=== PATIENT | female | born 1940 | race African-American/Black ===

== ENCOUNTER 2019-02-27 19:46 | Emergency (ER) | payer OTHER ==
[~2019-02-27] VITALS: Ht 170.2 cm; Wt 77.1 kg
[2019-02-27] MEDS ORDERED: METOPROLOL ER PO (20:07)
[2019-02-27] MEDS ORDERED: ASA81BEC PO (20:07)
[2019-02-27] MEDS ORDERED: PLAVIX 75 MG TA75 MG PO (20:08)
[2019-02-27] MEDS ORDERED: NITROSTAT0.4 M1 SUBLING (20:09)
[2019-02-27] MEDS ORDERED: FOLIC ACID1 MG PO (20:09)
[2019-02-27] MEDS ORDERED: METHOTREXATE 22.5 M1 PO (20:10)
[2019-02-27] MEDS ORDERED: ISOSORBIDE MONONITRATE PO (20:11)
[2019-02-27] MEDS ORDERED: ATORVASTATIN CA80 MG PO (20:11)
[2019-02-27] MEDS ORDERED: TRAMADOL 50 MG50 MG PO (20:26)
[2019-02-27] MEDS ORDERED: NITROGLYCERIN0.4 MG SUBLING (20:26)
[2019-02-27 20:29] LABS: HEMATOCRIT 36.3 % (37.0-47.0); HEMOGLOBIN 11.8 gm/dL (12.0-15.0); MCH 29.2 pg (26.0-34.0); MCHC 32.6 g/dL (28.0-37.0); MCV 89.5 fL (80.0-100.0); PLATELET COUNT 197 thou/uL (150-400); RBC 4.05 mil/uL (4.20-5.00); RDW 17.8 % (10.5-14.5); WBC 8.2 thou/uL (4.0-11.0)
[2019-02-27 20:40] LABS: ANION GAP 8 mmol/L (7-16); BUN 24 mg/dL (7-18); CALCIUM 9.2 mg/dL (8.5-10.1); CHLORIDE 108 mmol/L (98-107); CO2 26 mmol/L (21-32); CREATININE 1.4 mg/dL (0.6-1.0); GLUCOSE 101 mg/dL (74-106); POTASSIUM 4.1 mmol/L (3.5-5.1); SODIUM 142 mmol/L (136-145)
[2019-02-27 20:43] LABS: APTT 27.1 Seconds (24.5-32.8); PROTIME 10.2 Seconds (9.3-11.4)
[2019-02-27 20:49] LABS: ALBUMIN 3.1 g/dL (3.4-5.0); MAGNESIUM 1.6 mg/dL (1.8-2.4); SGOT 24 U/L (15-37); SGPT 25 U/L (30-65); TOTAL BILIRUBIN 0.2 mg/dL (<0.1-1.0); TOTAL PROTEIN 6.9 g/dL (6.4-8.2); TROPONIN-I <0.06 ng/mL (<0.06)
[2019-02-27 21:11] LABS: ABSOLUTE NEUTROPHILS 6.3 thou/uL (1.4-8.2)
[2019-02-27 21:12] LABS: PLATELET ESTIMATE NORMAL
[2019-02-27 21:31] VITALS: BP 135/69
--- NOTE | 2019-02-28 08:40 | EKG ---
[address] [address] ELECTROCARDIOGRAM REPORT Name: ASHOK ELIZONDO Room #: [facility]#: [id number] Admission: 02/27/19 Attend Phys: Discharge: 02/27/19 Date of : 40 Report #: [id number] THIS REPORT FOR: //name// [facility] ED Test Date: 2019-02-27 Test Time: 19:56:36 Pat Name: ASHOK ELIZONDO Department: Room: Gender: F Hospital Receiving Clerk: GABINO : 1940 Requested By: Jaspreet Caro Order Number: [id number] MD: Stone Snyder Measurements Intervals [place] Rate: 74 P: 68 NE: 161 QRS: 17 QRSD: 90 T: 7 QT: 405 QTc: 450 Interpretive Statements Sinus rhythm Inferior infarct, old No previous ECG available for comparison Electronically Signed On 02-28-2019 8:40:06 [employer] COUNTRY COACH by Stone Snyder [email or web address] <ELECTRONICALLY SIGNED> By: Stone Snyder MD 02/28/19 0840 55 55 Stone Snyder MD /OLVIN
== END 2019-02-27 21:32 | disposition home or self-care (01) ==
LOC: ER 19:46
PROVIDERS: Emergency Medicine
DX: R07.89 Other chest pain (principal); R25.2 Cramp and spasm; M19.90 Unspecified osteoarthritis, unspecified site; K21.9 Gastro-esophageal reflux disease without esophagitis; I25.10 Atherosclerotic heart disease of native coronary artery without angina pectoris; Z79.82 Long term (current) use of aspirin; Z79.899 Other long term (current) drug therapy; Z95.5 Presence of coronary angioplasty implant and graft

== ENCOUNTER 2019-12-01 08:27 | Inpatient (IN) | payer OTHER ==
[2019-12-01] VITALS (7 sets, daily range): BP systolic 121–145; BP diastolic 52–84
[~2019-12-01] VITALS: Ht 170.2 cm; Wt 78.0 kg
[~2019-12-01 08:27] MED LIST: ASA81BEC PO; ATORVASTATIN CA80 MG PO; FOLIC ACID1 MG PO; ISOSORBIDE MONONITRATE PO; METHOTREXATE 22.5 M1 PO; METOPROLOL ER PO; NITROGLYCERIN0.4 MG SUBLING; NITROSTAT0.4 M1 SUBLING; PLAVIX 75 MG TA75 MG PO; TRAMADOL 50 MG50 MG PO
[2019-12-01] MEDS ORDERED: CHLORTHALIDONE25 MG PO (08:47)
[2019-12-01] MEDS ORDERED: ZETIA10 MG PO (08:48)
--- NOTE | 2019-12-01 09:11 | EKG ---
[facility] [place] [place] [place] [address] ELECTROCARDIOGRAM REPORT Name: ASHOK ELIZONDO Room #: [facility]#: [id number] Admission: 12/01/19 Attend Phys: Discharge: Date of : 40 Report #: [id number] THIS REPORT FOR: cc: Sheila Tello K. Steven DO Lundgren, Craig H. MD [facility] THIS REPORT FOR: //name// [facility] ED Test Date: 2019-12-01 Test Time: 08:34:34 Pat Name: ASHOK ELIZONDO Department: Room: Gender: F [employer]: ALPHONSO : 1940 Requested By: Jaspreet Caro Order Number: [id number] MD: Johan Arriaza Measurements Intervals [place] Rate: 99 P: 65 [place]: 149 QRS: -25 QRSD: 95 T: 42 QT: 360 QTc: 462 Interpretive Statements Sinus rhythm Poor R wave progression Inferior infarct, old Compared to ECG 02/27/2019 19:56:36 No significant changes Electronically Signed On 12-01-2019 9:11:19 CDT by Johan Arriaza [email or web address] <ELECTRONICALLY SIGNED> By: Johan Arriaza MD, FACC 12/01/1911 3 Johan Arriaza MD, [facility] /EPI
[2019-12-01 09:20] LABS: ABSOLUTE NEUTROPHILS 7.2 thou/uL (1.4-8.2); BASOPHILS 0.5 % (0.0-2.0); EOSINOPHILS 0.5 % (0.0-3.0); HEMATOCRIT 40.2 % (37.0-47.0); HEMOGLOBIN 13.4 gm/dL (12.0-15.0); LYMPHOCYTES 10.2 % (24.0-44.0); MCH 29.6 pg (26.0-34.0); MCHC 33.3 g/dL (28.0-37.0); MONOCYTES 7.5 % (1.0-8.0); PLATELET COUNT 230 thou/uL (150-400); POLYS 81.3 % (36.0-66.0); RBC 4.52 mil/uL (4.20-5.00); RDW 15.9 % (10.5-14.5); WBC 8.9 thou/uL (4.0-11.0)
[2019-12-01 09:22] LABS: ANION GAP 12 mmol/L (7-16); BUN 16 mg/dL (7-18); CHLORIDE 99 mmol/L (98-107); CO2 28 mmol/L (21-32); CREATININE 0.9 mg/dL (0.6-1.0); GLUCOSE 121 mg/dL (74-106); POTASSIUM 3.2 mmol/L (3.5-5.1); SODIUM 139 mmol/L (136-145)
[2019-12-01 09:32] LABS: ALBUMIN 3.5 g/dL (3.4-5.0); MAGNESIUM 1.9 mg/dL (1.8-2.4); SGOT 50 U/L (15-37); SGPT 59 U/L (30-65); TOTAL BILIRUBIN 0.8 mg/dL (0.2-1.0); TOTAL PROTEIN 7.7 g/dL (6.4-8.2); TROPONIN-I <0.06 ng/mL (<0.06)
[2019-12-01 10:40] LABS: CHOLESTEROL 172 mg/dL (<200); HDL CHOLESTEROL 79 mg/dL (>40); LDL CHOLESTEROL 84 mg/dL (<100); TC:HDL 2.2 Ratio (Not establshd); TRIGLYCERIDE 46 mg/dL (<150); VLDL 9 mg/dL (<40)
--- NOTE | 2019-12-01 14:38 | EXE ---
[facility] [place] [place] [place] [address] STRESS ECHOCARDIOGRAM Name: ASHOK ELIZONDO Room #: 211-P [facility] IN M.R.#: [id number] Admission: 12/01/19 Attend Phys: Denise Crespo Tyler Discharge: Date of : 40 Report #: [id number] THIS REPORT FOR: cc: Sheila Tello K. Steven DO Lundgren, Craig H. MD [facility] ~ THIS REPORT FOR: //name// APPROVED REPORT Study performed: 12/01/2019 12:44:33 Exam: Stress Echocardiogram Indication: Chest pain Patient Location: Echo lab Room #: 211 Status: routine Ht: 5 ft 7 in HR: 82 bpm BP: 128/60 mmHg Rhythm: NSR Medical History Medical History: CAD s/p stent Exercise History: Physically active Procedure The patient underwent an Exercise Stress Test using the Modified Hesham Protocol. Blood pressure, heart rate, and EKG were monitored. An Echocardiogram was performed by laboratory mechanical technician in four stages in quad fashion. At peak stress, four selected images were obtained and placed side by side with resting images for comparison. Stress Test Details Stress Test: Exercise stress testing was performed using a modified Hesham protocol. HR Resting HR: 82 bpm Max Heart Rate (APMHR): 141 bpm Max HR Achieved: 139 bpm Target HR (85% APMHR): 119 bpm % of APMHR: 98 Recovery HR: 88 bpm HR response to stress: Normal HR response to stress [facility] [address] [place] [address] STRESS ECHOCARDIOGRAM Name: CAROASHOK Gregorio Room #: 211-P [facility] IN [facility].#: [id number] Admission: 12/01/19 Attend Phys: Denise Petty Discharge: Date of : 40 Report #: [id number] Resting BP: 128/60 mmHg Max BP: 160/66 mmHg Recovery BP: 132/60 mmHg BP response to stress: Normal blood pressure response to stress. ECG Resting ECG: Sinus Rhythm Stress ECG: Sinus Tachycardia ST Change: Non-ischemic Maximum ST Deviation: 0 mm Arrhythmia: None Recovery ECG: Sinus Rhythm Recovery ST Change: Non-ischemic Recovery ST Deviation: 0 mm Recovery Arrhythmia: None Clinical Reason for Termination: Maximal effort Exercise duration: 11 min 13 sec Highest Stage Achieved: Stage 2: 2.5 mph at 12% grade. Exercise capacity: 7.0 METs Overall Exercise Capacity for Age: Good Angina Score: None Stress ECG Conclusion Clinical: Non-ischemic ECG: Non-ischemic Maguire Treadmill Score is 11.0 which is Low risk. Pre-Stress Echo The resting Echocardiogram showed normal left ventricular contractility with an estimated Ejection Fraction of about 50-55%. The resting echocardiogram demonstrated normal wall motion in all wall segments. Post-Stress Echo The stress Echocardiogram showed normal left ventricular contractility with an estimated Ejection Fraction of about 65-70%. Compared to rest, there were no stress-induced wall motion abnormalities. Conclusion Clinical Response: Non-ischemic Exercise Capacity: Average Stress ECG Response: Non-ischemic [facility] [address] [place] [address] STRESS ECHOCARDIOGRAM Name: ASHOK ELIZONDO Room #: 211-P ADM IN M.R.#: [id number] Admission: 12/01/19 Attend Phys: Denise Petty Discharge: Date of : 40 Report #: [id number] Stress Echo Images: Non-ischemic The left ventricle is normal in size and wall thickness in both the rest and stress images. Normal stress echocardiogram with maximal exercise stress. No prior study available for comparison. Other Information Study Quality: Good <Conclusion> The left ventricle is normal in size and wall thickness in both the rest and stress images. Normal stress echocardiogram with maximal exercise stress. <ELECTRONICALLY SIGNED> By: Johan Arriaza MD, FACC 12/01/19 1438 1438 143 Johan Arriaza MD, FACC /INF
--- NOTE | 2019-12-01 19:13 | NUR ---
PT CARE ASSUMED AT 1130. ASSESSMENTS CHARTED. MEDICATION CHARTED. PT IS VERY STEADY ON HER FEET. PT EXPERIENCES MID STERNAL CP; TOOK NITRO TO LITTLE EFFECT IN ED; TOOK MORPHINE IN CCU TO BETTER EFFECT. PT FEELS BETTER ALMOST IMMEDIATELY UPON SITTING UP.
[2019-12-02 00:45] VITALS: BP 115/60
--- NOTE | 2019-12-02 03:40 | NUR ---
ASSESSMENTS CHARTED, MEDS CHARTED GIVEN. PATIENT UP AT JACQUE IN ROOM. DENIES PAIN. ON ROOM AIR. SO FAR CHEST XRAY IS FINE, HER STRESS ECHO WAS FINE, AND SHE HAS TWO NEGATIVE TROPONINS. HAS A CONSULT FOR CARDIOLOGY, POSSIBLY DISCHARGING TODAY. FALL PRECAUTIONS IN PLACE DURING SHIFT.
[2019-12-02 04:45] VITALS: BP 119/57
[2019-12-02 08:00] VITALS: BP 121/61
[2019-12-02 12:14] VITALS: BP 121/61
--- NOTE | 2019-12-02 13:04 | NUR ---
ASSUMMED PT CARE AT APPROXIMATELY 0700. PT A&O X4. ASSESSMENT CHARTED. PT AMBULATES STEADY AND INDEPENDENT. VITAL SIGNS STABLE. INFORMED DR. CONROY OF HYPOKALEMIA. REPLACEMENT ORDERED AND IMPLEMENTED. PT DISCHARGING HOME C SELF CARE. IV DC. TELE DC. PT RECEIVED DISCHARGE EDUCATION. PT STATED UNDERSTANDING AND DENIED HAVING FURTHER CONCERNS. AMBULATED C PT OFF UNIT. PT AMBULATES STEADY. PT'S FAMILY ARRIVED TO INFORMATION STRATEGIST PT. PT COMFROTABLE. PT DENIES HAVING FURTHER CONCERNS.
== END 2019-12-02 12:57 | disposition home or self-care (01) | DRG 303 ==
LOC: ER 08:27 → EROBS 10:11 → 2N 11:41
PROVIDERS: Emergency Medicine; ADMIT Hospitalist; ATTEND Hospitalist
DX: I25.10 Atherosclerotic heart disease of native coronary artery without angina pectoris (principal); E78.5 Hyperlipidemia, unspecified; I10 Essential (primary) hypertension; K21.9 Gastro-esophageal reflux disease without esophagitis; G89.29 Other chronic pain; I25.2 Old myocardial infarction; Z95.5 Presence of coronary angioplasty implant and graft; Z79.01 Long term (current) use of anticoagulants; Z79.82 Long term (current) use of aspirin; Z79.899 Other long term (current) drug therapy
CPT/HCPCS: 10081

== ENCOUNTER 2020-01-17 11:33 | Inpatient (IN) | payer OTHER ==
[~2020-01-17] VITALS: Ht 170.2 cm; Wt 74.8 kg
[~2020-01-17 11:33] MED LIST changes: +CHLORTHALIDONE25 MG PO; +ZETIA10 MG PO
[2020-01-17 11:46] VITALS: BP 116/74
[2020-01-17 12:37] LABS: HEMATOCRIT 36.4 % (37.0-47.0); MCH 29.3 pg (26.0-34.0); MCHC 32.9 g/dL (28.0-37.0); MCV 89.2 fL (80.0-100.0); RBC 4.08 mil/uL (4.20-5.00); RDW 16.7 % (10.5-14.5)
[2020-01-17 12:44] LABS: ANION GAP 9 mmol/L (7-16); BUN 23 mg/dL (7-18); CALCIUM 9.6 mg/dL (8.5-10.1); CHLORIDE 101 mmol/L (98-107); CO2 29 mmol/L (21-32); CREATININE 1.1 mg/dL (0.6-1.0); GLUCOSE 99 mg/dL (74-106); POTASSIUM 3.2 mmol/L (3.5-5.1); SODIUM 139 mmol/L (136-145)
[2020-01-17 12:51] LABS: APTT 31.8 Seconds (24.5-32.8); INR 1.1; PROTIME 10.8 Seconds (9.3-11.4)
[2020-01-17 12:53] LABS: TROPONIN-I <0.06 ng/mL (<0.06)
[2020-01-17 14:03] VITALS: BP 100/50
[2020-01-17 14:38] VITALS: BP 119/69
--- NOTE | 2020-01-17 16:07 | EKG ---
[facility] [place] [place] [address] ELECTROCARDIOGRAM REPORT Name: ASHOK ELIZONDO Room #: 357-P ADM IN M.R.#: [id number] Admission: 01/17/20 Attend Phys: Shin Hamilton MD Discharge: Date of : 40 Report #: [id number] THIS REPORT FOR: cc: Sheila Tello K. Steven DO Santiago, Patrick MD [facility] ~ THIS REPORT FOR: //name// [facility] ED Test Date: 2020-01-17 Test Time: 12:12:41 Pat Name: ASHOK ELIZONDO Department: Room: 357 P Gender: F Manufacturing Engineering Manager: [facility] : 1940 Requested By: Shin Hamilton Order Number: [id number] MD: Devon Tejeda Measurements Intervals [place] Rate: 120 P: [place]: QRS: 22 QRSD: 93 T: -11 QT: 332 QTc: 470 Interpretive Statements Atrial fibrillation Abnormal R-wave progression, late transition Inferior infarct, old Compared to ECG 12/01/2019 08:34:34 Sinus rhythm no longer present Poor R-wave progression no longer present Myocardial infarct finding still present Electronically Signed On 01-17-2020 16:07:40 CDT by Devon Tejeda [email or web address] <ELECTRONICALLY SIGNED> By: Devon Tejeda MD, FACC 01/17/20 1607 11 11 Devon Tejeda MD, FAC /EPI
[2020-01-17 16:41] VITALS: BP 114/68
--- NOTE | 2020-01-17 18:15 | NUR ---
PATIENT ADMITTED TO UNIT AT THIS TIME. RESPIRATIONS ARE EVEN NON LABORED. SHE STATES SHE FEELS TIRED AND WILL LIKE TO GET SOME REST. UP AD JACQUE. WILL CONT WITH PLAN OF CARE.
[2020-01-17 20:21] VITALS: BP 139/83
[2020-01-18 04:01] VITALS: BP 128/73
--- NOTE | 2020-01-18 04:47 | NUR ---
ASSUMED CARE OF PT AT 1900HRS. PT AOX4 AND LETS NEEDS BE KNOWN. PT IS UP AD JACQUE. PT TESTED POSITIVE FOR COVID ON 01/17/20. PT PLACED IN 2L O2 FOR COMFORT. PT IS AFIB ON TELE. PT REPORTS NOT BEING ABLE TO SLEEP MUCH THIS SHIFT. VSS AND NO S/S OF ACUTE DISTRESS. WILL CONTINUE TO MONITOR.
[2020-01-18 06:15] LABS: ABSOLUTE NEUTROPHILS 8.8 thou/uL (1.4-8.2); BASOPHILS 0.5 % (0.0-2.0); EOSINOPHILS 2.7 % (0.0-3.0); HEMATOCRIT 36.2 % (37.0-47.0); HEMOGLOBIN 11.8 gm/dL (12.0-15.0); LYMPHOCYTES 5.7 % (24.0-44.0); MCH 29.4 pg (26.0-34.0); MCHC 32.6 g/dL (28.0-37.0); MCV 90.1 fL (80.0-100.0); MONOCYTES 11.4 % (1.0-8.0); PLATELET COUNT 316 thou/uL (150-400); POLYS 79.7 % (36.0-66.0); RBC 4.01 mil/uL (4.20-5.00); RDW 17.3 % (10.5-14.5)
[2020-01-18 06:42] LABS: ANION GAP 12 mmol/L (7-16); BUN 18 mg/dL (7-18); CALCIUM 9.1 mg/dL (8.5-10.1); CHLORIDE 103 mmol/L (98-107); CHOLESTEROL 153 mg/dL (<200); CO2 24 mmol/L (21-32); CREATININE 0.9 mg/dL (0.6-1.0); GLUCOSE 93 mg/dL (74-106); HDL CHOLESTEROL 65 mg/dL (>40); LDL CHOLESTEROL 78 mg/dL (<100); MAGNESIUM 2.1 mg/dL (1.8-2.4); SODIUM 139 mmol/L (136-145); TC:HDL 2.4 Ratio (Not establshd); TRIGLYCERIDE 52 mg/dL (<150); VLDL 10 mg/dL (<40)
[2020-01-18 06:43] LABS: SERUM ASSESSMENT Clear
[2020-01-18 07:22] VITALS: BP 108/53
[2020-01-18] MEDS ORDERED: METOPROLOL SUCC50 MG PO (09:22)
[2020-01-18] MEDS ORDERED: XARELTO20 MG PO (09:22)
--- NOTE | 2020-01-18 11:20 | EKG ---
[facility] [place] [place] [address] ELECTROCARDIOGRAM REPORT Name: ASHOK ELIZONDO Room #: 357-P ADM IN M.R.#: [id number] Admission: 01/17/20 Attend Phys: Shin Hamilton MD Discharge: Date of : 40 Report #: [id number] THIS REPORT FOR: cc: Sheila Tello K. Steven DO Santiago, Patrick MD [facility] ~ THIS REPORT FOR: //name// [facility] Test Date: 2020-01-18 Test Time: 08:15:44 Pat Name: ASHOK ELIZONDO Department: Room: 357 P Gender: F On Call: CHARLIE : 1940 Requested By: Johan Arriaza Order Number: [id number] MD: Devon Tejeda Measurements Intervals [place] Rate: 96 P: 41 [place]: 160 QRS: 26 QRSD: 87 T: 59 QT: 346 QTc: 438 Interpretive Statements Sinus rhythm Atrial premature complex Abnormal R-wave progression, late transition Inferior infarct, old Compared to ECG 01/17/2020 12:12:41 Atrial premature complex(es) now present Atrial fibrillation no longer present Myocardial infarct finding still present Electronically Signed On 01-18-2020 11:20:02 CDT by Devon Tejeda [email or web address] <ELECTRONICALLY SIGNED> By: Devon Tejeda MD, FACC 01/18/20 1120 4 4 Devon Tejeda MD, [facility] /EPI
[2020-01-18 11:32] VITALS: BP 111/55
--- NOTE | 2020-01-18 15:24 | NUR ---
PT ASSESSED AT START OF SHIFT. FEELING BETTER. PT STATES CANNOT FEEL HEART WHEN BEATS FAST OR IRREGULAR. IN SR AT PRESENT RATE CONTROLLED. LOW GRADE TEMP THIS AM. DR. BRIONES IN EARLY AND SIGNED OFF. PT TO F/U W/ CARDIO. WILL NEED CONTINUED ANTICOAGULATION.
[2020-01-18 15:29] VITALS: BP 123/76
[2020-01-18 19:07] VITALS: BP 115/60
--- NOTE | 2020-01-18 22:34 | NUR ---
PT SLEEPING IN BED, EASILY AROUSED FOR ASSESSMENT. O2 PER NC 1L. PT INDEP WITH AMBULAITON. PT PROVIDED HS SNACK. POSSIBLE DC IN AM. ID ROUNDED ON PT.
[2020-01-19 03:16] VITALS: BP 109/68
[2020-01-19 07:17] VITALS: BP 135/70
--- NOTE | 2020-01-19 12:36 | EKG ---
[facility] [place] [place] [address] ELECTROCARDIOGRAM REPORT Name: ASHOK ELIZONDO Room #: 357-P ADM IN M.R.#: [id number] Admission: 01/17/20 Attend Phys: Shin Hamilton MD Discharge: Date of : 40 Report #: [id number] THIS REPORT FOR: cc: Sheila Tello K. Steven DO Couchonnal, Luis F. MD ~ THIS REPORT FOR: //name// [facility] Test Date: 2020-01-19 Test Time: 12:18:05 Pat Name: ASHOK ELIZONDO Department: Room: 357 P Gender: F [employer] C[employer]: [place] : 1940 Requested By: Shin Hamilton Order Number: [id number] MD: Stone Snyder Measurements Intervals [place] Rate: 106 P: [place]: QRS: 13 QRSD: 85 T: 11 QT: 326 QTc: 433 Interpretive Statements Atrial fibrillation Abnormal R-wave progression, late transition Consider left ventricular hypertrophy Inferior infarct, old Compared to ECG 01/18/2020 08:15:44 Sinus rhythm no longer present Atrial premature complex(es) no longer present Myocardial infarct finding still present Electronically Signed On 01-19-2020 12:35:56 CDT by Stone Snyder [email or web address] <ELECTRONICALLY SIGNED> By: Stone Snyder MD 01/19/20 1235 17 17 Stone Snyder MD /EPI
[2020-01-19] MEDS ORDERED: METOPROLOL SUCC50 MG PO (14:18)
[2020-01-19 15:09] VITALS: BP 135/70
--- NOTE | 2020-01-19 15:31 | NUR ---
ASSUMED CARE OF PT AT 0700. PT AOX4 UP AD JACQUE IN NO DISTRESS. SINUS RHYTHM UNTIL APPROX 0900 TODAY - AFIB ON TELEMETRY, UP TO 140's WITH ACTIVITY. PHYSICIAN NOTIFIED - EKG ORDERED - AFIB - HR 106. NOTIFIED CARDIOLOGY BY PHONE - TOPROLOL INCREASED TO 100MG DAILY. OK TO DISCHARGE AT THIS TIME, PER CARDIOLOGY. WAITING ON TRANSPORT. WCM.
--- NOTE | 2020-01-19 16:07 | NUR ---
INITIAL ASSESSMENT/DISCHARGE NOTE: SW reviewed chart and spoke with nursing and attending physician. Pt was admitted from home due to afib with RVR. Pt placed in Enhanced Isolation due to COVID-19. Pt tested positive a few weeks ago. Pt is medically stable for discharge home today. SW spoke with pt via phone. Introduced role of SW. Pt reports she lives at home with her dtr. Prior to admission, pt was independent with ADLs. No use of DME. No stairs to navigate. Pt's PCP is Dr. Clayton Tello. Pt states her family is able to provide transportation home this afternoon. No SW needs identified at this time, but is available to assist should needs arise.
== END 2020-01-19 15:50 | disposition home or self-care (01) | DRG 177 ==
LOC: ER 11:33 → 3W 14:15 → EROBS 14:15 → 3W 15:01
PROVIDERS: Emergency Medicine; Nurse Practitioner; ADMIT Hospitalist; ATTEND Hospitalist
DX: U07.1 COVID-19 (principal); J12.9 Viral pneumonia, unspecified; I48.0 Paroxysmal atrial fibrillation; E78.5 Hyperlipidemia, unspecified; M06.9 Rheumatoid arthritis, unspecified; I25.10 Atherosclerotic heart disease of native coronary artery without angina pectoris; E87.6 Hypokalemia; G89.29 Other chronic pain; E83.42 Hypomagnesemia; Z60.2 Problems related to living alone; Z79.01 Long term (current) use of anticoagulants; I25.2 Old myocardial infarction; Z95.5 Presence of coronary angioplasty implant and graft; Z90.710 Acquired absence of both cervix and uterus; Z28.21 Immunization not carried out because of patient refusal; Z79.899 Other long term (current) drug therapy
CPT/HCPCS: 10879

== ENCOUNTER 2020-02-22 10:51 | Inpatient (IN) | payer OTHER ==
[~2020-02-22] VITALS: Ht 170.2 cm; Wt 79.4 kg
[~2020-02-22 10:51] MED LIST changes: +METOPROLOL SUCC50 MG PO; +XARELTO20 MG PO
[2020-02-22 10:53] VITALS: BP 112/64
[2020-02-22 11:39] LABS: HEMATOCRIT 27.3 % (37.0-47.0); MCH 29.9 pg (26.0-34.0); MCHC 32.8 g/dL (28.0-37.0); MCV 91.1 fL (80.0-100.0); PLATELET COUNT 276 thou/uL (150-400); RBC 2.99 mil/uL (4.20-5.00); RDW 18.9 % (10.5-14.5)
[2020-02-22 11:45] LABS: ANION GAP 13 mmol/L (7-16); BUN 25 mg/dL (7-18); CALCIUM 8.8 mg/dL (8.5-10.1); CHLORIDE 103 mmol/L (98-107); CO2 20 mmol/L (21-32); CREATININE 1.1 mg/dL (0.6-1.0); GLUCOSE 135 mg/dL (74-106); POTASSIUM 4.1 mmol/L (3.5-5.1); SODIUM 136 mmol/L (136-145)
[2020-02-22 11:53] LABS: TROPONIN-I <0.06 ng/mL (<0.06)
[2020-02-22 12:11] LABS: ABSOLUTE NEUTROPHILS 8.1 thou/uL (1.4-8.2); PLATELET ESTIMATE NORMAL
[2020-02-22 16:02] VITALS: BP 103/63
[2020-02-22 16:20] VITALS: BP 103/63
[2020-02-22 17:35] VITALS: BP 103/63
[2020-02-22 18:16] VITALS: BP 112/72
--- NOTE | 2020-02-22 18:46 | NUR ---
ASSUMED CARE OF PT AT APPROX 1800 FROM ER D/T AFIB W RVR. COMPLETED ADMISSION ASSESSMENT, HISTORY AND EDUCATION. ORIENTED PT TO ROOM. WILL CONTINUE TO MONITOR AND FOLLOW POC.
[2020-02-22 19:30] VITALS: BP 123/65
--- NOTE | 2020-02-22 22:33 | NUR ---
Pt is transferred to due to been positive, family notified.
[2020-02-23 04:16] VITALS: BP 108/60
--- NOTE | 2020-02-23 04:16 | NUR ---
PT AMBULATING TO BATHROOM INDEPENDENTLY AND IS TOLERATING FAIR. DENIES PAIN. CCU TX. RESTING COMFORTABLY. NO NEEDS VOICED. CALL LIGHT WITHIN REACH. FREQUENT OBSERVATION.
[2020-02-23 05:14] LABS: CALCIUM 8.1 mg/dL (8.5-10.1); POTASSIUM 3.6 mmol/L (3.5-5.1)
[2020-02-23 05:45] LABS: HEMATOCRIT 23.5 % (37.0-47.0); HEMOGLOBIN 7.8 gm/dL (12.0-15.0); MCH 29.6 pg (26.0-34.0); MCHC 33.1 g/dL (28.0-37.0); MCV 89.3 fL (80.0-100.0); RBC 2.63 mil/uL (4.20-5.00); RDW 18.7 % (10.5-14.5); WBC 12.3 thou/uL (4.0-11.0)
[2020-02-23 07:22] VITALS: BP 114/69
--- NOTE | 2020-02-23 10:34 | NUR ---
ORDERS RECEIVED FOR EVAL AND TREAT. Pt HAD JUST GOTTEN DONE WITH O.T. EVAL AND THEY WERE SIGNING OFF ON HER. Pt STATES SHE HAS BEEN GETTING UP ON HER OWN AND DECLINING A FORMAL P.T. EVAL. Pt APPEARS SAFE FOR HOME WHEN MEDICALLY CLEAR
[2020-02-23 11:29] VITALS: BP 116/64
--- NOTE | 2020-02-23 12:15 | NUR ---
Nutrition: pt admit with SOA, fever, COVID + status but prior hx of COVID noted. Pt risked for weight loss, poor appetite. S/W pt over phone due to enhanced precautions. Pt reports a prior weight loss down to 159# but is now regaining. Current weight 170#. Appetite has been decreased but is tolerating about 50% of meals. States she is not picky and likes the meals offered. Drinks ensure at home. Add one a day at dinner. Pt was pleased with this. Consider low nutrition risk.
--- NOTE | 2020-02-23 12:17 | NUR ---
ASSESSMENT-S/W DTR KAYLEE BY PHONE. SHE AND PT LIVE TOGETHER IN A SPLIT LEVEL HOME. THERE ARE NO STEPS TO ENTER THEN 6 STEPS TO MAIN LEVEL WITH 2 SIDED RAILS AND THEN 6 MORE STEPS TO BEDROOM LEVEL WITH ONE SIDED RAIL. PT HAS BEEN ABLE TO GO UP AND DOWN STEPS. PT USES NO DME AND HAS NOT HAD ANY HH SERVICES. PT HAS GONE TO OUTPT THERAPY IN THE PAST. PT HAS 2 SONS ABOUT 10 MIN. AWAY AND A SISTER FOR SUPPORT ALSO. DTR HAS BEEN DOING THE COOKING. SHE SAYS PT TRIES TO STAY BUSY AND HAS BEEN DOING THE LAUNDRY. DR JASSO IS PT'S PCP. FOLLOWING TO ASSIST WITH DC PLANNING.
--- NOTE | 2020-02-23 13:45 | 2DMMODE ---
[facility] [place] [place] [place] [address] 2 D/M-MODE ECHOCARDIOGRAM Name: ASHOK ELIZONDO Room #: 358-P ADM IN M.R.#: [id number] Admission: 02/22/20 Attend Phys: Renzo Jackson MD Discharge: Date of : 40 Report #: [id number] THIS REPORT FOR: cc: Sheila Tello K. Steven DO Lammoglia, Francisco J. MD ~ APPROVED REPORT Study performed: 02/23/2020 10:34:37 EXAM: Limited 2D, Doppler, and color-flow Echocardiogram Patient Location: Bedside Room #: 358 Status: on-call BSA: 1.89 HR: 113 bpm BP: 114/69 mmHg Rhythm: Tachycardia Other Information Study Quality: Adequate Indications AFIB W RVR, Pericardial effusion. COVID+ Chest pain, fatigue, short of breath. Hx: CAD, stents, HTN. Aortic Valve AoV Peak Radames.: 1.40 m/s AO Peak Gr.: 7.80 mmHg Tricuspid Valve TR Peak Radames.: 1.92 m/s RAP Estimate: 15.00 mmHg TR Peak Gr.: 15.00 mmHg PA Pressure: 30.00 mmHg Left Ventricle The left ventricle is normal size. There is normal LV segmental wall motion. The left ventricular systolic function is normal. LVEF is 55-60%. Mild diastolic dysfunction is present (impaired relaxation pattern). Right Ventricle The right ventricle is normal size. The right ventricular systolic function is normal. No evidence of diastolic ventricular collapse [facility] [address] [place] [address] 2 D/M-MODE ECHOCARDIOGRAM Name: ASHOK ELIZONDO Gregorio Room #: 358-P [facility] IN .R.#: [id number] Admission: 02/22/20 Attend Phys: Renzo Jackson MD Discharge: Date of : 40 Report #: [id number] Atria Left atrium is dilated. The right atrium size is normal. Aortic Valve The aortic valve is normal in structure. No aortic regurgitation is present. There is no aortic valvular stenosis. Mitral Valve The mitral valve is normal in structure. Mild mitral regurgitation. Tricuspid Valve The tricuspid valve is normal in structure. Trace tricuspid regurgitation. Estimated PAP is 30mmHg. Great Vessels IVC is dilated and collapses <50% with inspiration. Pericardium Moderate circumferential pericardial effusion. No echocardiographic evidence of tamponade <Conclusion> The left ventricle is normal size. LVEF is 55-60%. The right ventricle is normal size. The right ventricular systolic function is normal. No evidence of diastolic ventricular collapse Left atrium is dilated. The aortic valve is normal in structure. The mitral valve is normal in structure. Mild mitral regurgitation. The tricuspid valve is normal in structure. Trace tricuspid regurgitation. Estimated PAP is 30mmHg. Moderate circumferential pericardial effusion. No echocardiographic evidence of tamponade <ELECTRONICALLY SIGNED> By: Rl Etienne MD 02/23/20 1345 1345 44 Rl Etienne MD /INF
[2020-02-23 15:26] VITALS: BP 106/58
--- NOTE | 2020-02-23 17:20 | NUR ---
RN ASSUMED PT'S CARE AT 0700AM, PT IS A&OX3, PT'S O2SAT 96-98% AT RA, BUT PT HAS SOB WHEN PT GETS UP TO BATH ROOM, PT IS CONTINUING IV ABX AND ISOLATION FOR POSITIVE COVID, PT HAD TYLENOL PO 650MG FOR TEMP 100.5 F, RN HAS UPDATED PT'S IMFORMATIOM TO PT'S FAMILY.
[2020-02-23 19:05] VITALS: BP 104/59
--- NOTE | 2020-02-23 21:11 | NUR ---
UPDATE PROVIDED TO PTS DAUGHTER PER PTS REQUEST.
--- NOTE | 2020-02-23 22:15 | NUR ---
PT WATCHING TV IN BED. PT INDEP AMBULATING TO RESTROOM, REPORTS SOA WITH RETURN. LUNGS WITH WHEEZES. PRN O2 NC AT BEDSIDE. PT ALSO PROVIDED BSC. PT ASKED QUESTIONS RE PERICARDIOCENTESIS. PTS DAUGHTER REQUESTED PT HAVE ORDER FOR MELATONIN. NURSE WENT BACK TO TALK WITH PT ABOUT SLEEPING AID, PT WAS ALREADY ASLEEP. WILL CLARIFY WITH PT WHEN AWAKE IF SHE WANTS PROVIDER TO ORDER. PT REITERATED THAT SHE WANTED DAUGHTER THAT SHE LIVES WITH TO BE HER DESIGNATED PROVIDER.
[2020-02-24 03:37] VITALS: BP 132/69
--- NOTE | 2020-02-24 03:49 | NUR ---
HR REMAINING ELEVATED MID 120 TO 130 AFTER RESTING FROM AMBULATION. PROVIDER NOTIFIED. NEW ORDER RECEIVED.
[2020-02-24 07:48] VITALS: BP 115/63
[2020-02-24 11:20] VITALS: BP 119/67
[2020-02-24 15:20] VITALS: BP 113/72
--- NOTE | 2020-02-24 19:37 | NUR ---
RN ASSUMED PT'S CARE AT 0700AM, PT IS A&OX3, PT IS CONTINUING IV ABX, PT 'S VS ARE STABLE, PT HAS SOB WITH ACTIVITIES, RN HAS CALLED DR ABOUT PT'S HR 120-130, NEW ORDER RECEIVED, PT GETS UP TO BATH ROOM BY HERSELF , RN HAS CALLED PT'S FAMILY TO UPDATE PT'S INFORMATION.
[2020-02-24 20:29] VITALS: BP 111/75
[2020-02-25] VITALS (7 sets, daily range): BP systolic 106–143; BP diastolic 55–70
--- NOTE | 2020-02-25 04:36 | NUR ---
PT AMBULATING TO BATHROOM INDEPENDNENTLY AND IS TOLERATING FAIR. DENIES PAIN. RESTING COMFORTABLY. NO NEEDS VOICED. CALL LIGHT WITHIN REACH. FREQUENT OBSERVATION.
--- NOTE | 2020-02-25 20:02 | NUR ---
RN ASSUMED PT'S CARE AT 0700AM, PT IS A&OX3, PT IS ON O2 1L/MIN/NC, PT HAS SOB WITH ACTIVIES, DR SANTANA HAS SEEING THIS PT, NEW ORDER RECEIVED, RN HAS CALLED TO REPORT PT'S HR 120-140 , PT HAS DILTIAZEM 10MG IVB ONE TIME, THEN STARTED DILTIZEM IV DRIP AT 1700PM PER ORDER, PT 'S HR HAS IMPROVED AT 10MG/HR ,RN HAS REPORTED TO NEXT SHIFT TO KEEP EYE ON PT.
[2020-02-26] VITALS (7 sets, daily range): BP systolic 116–136; BP diastolic 53–75
--- NOTE | 2020-02-26 03:52 | NUR ---
PT ALERT AND ORIENTED X4. VSS. RR 24 BUT UNLABORED. SATS WNL ON 1LNC. CARDIZEM AT 10 ML/HR. VANC INFUSED. NO C/O PAIN. NO S/S DISTRESS. BED DOWN CALL LIGHT IN REACH. AFIB 70-80 ON MONITOR PRESENTY. PROGRESSING TOWARDS D/C GOALS.
[2020-02-26 05:27] LABS: ABSOLUTE NEUTROPHILS 11.5 thou/uL (1.4-8.2); BASOPHILS 0.3 % (0.0-2.0); EOSINOPHILS 0.6 % (0.0-3.0); HEMOGLOBIN 7.8 gm/dL (12.0-15.0); MCH 29.8 pg (26.0-34.0); MCHC 32.7 g/dL (28.0-37.0); MONOCYTES 7.8 % (1.0-8.0); PLATELET COUNT 329 thou/uL (150-400); POLYS 87.3 % (36.0-66.0); RBC 2.63 mil/uL (4.20-5.00); RDW 19.7 % (10.5-14.5); WBC 13.2 thou/uL (4.0-11.0)
[2020-02-26 06:05] LABS: CALCIUM 8.5 mg/dL (8.5-10.1); POTASSIUM 3.7 mmol/L (3.5-5.1)
--- NOTE | 2020-02-26 07:07 | HC ---
[facility] [place] [address] CONSULTATION Name: ASHOK ELIZONDO Room #: 358-P ADM IN M.R.#: [id number] Admission: 02/22/20 Attend Phys: Renzo Jackson MD Discharge: Date of : 40 Report #: [id number] THIS REPORT FOR: cc: Sheila Tello K. Steven DO Barry, Joseph W. MD ~ DATE OF SERVICE: 02/23/2020 INFECTIOUS DISEASE CONSULTATION ATTENDING PHYSICIAN: Dr. Jackson. REASON FOR EVALUATION: Positive COVID testing as the patient had been diagnosed in 12/2019, readmitted with chest-related discomfort, was found to have pericardial effusion. HISTORY OF SUBJECTIVE: Chart reviewed, patient examined. This is a 79-year-old woman with a history of hypertension, coronary artery disease and rheumatoid arthritis, who was actually diagnosed with COVID-19 infection in 12/2019 and stayed 2 days and presented to the Emergency Room with complaints of sternal chest pain and over the last several days prior to admission, had fevers as well. Chest x-ray showed mild cardiomegaly, patchy left lower lobe infiltrate. D-dimer was mildly elevated, procalcitonin less than 0.05, lactic acid 1.3. Influenza antigen was negative for both A and B. CTA chest, PE protocol showed no evidence of PE, moderately large pericardial effusion with mild cardiomegaly, mild right and small left pleural effusion. Blood cultures were collected at time of admission, are sterile thus far. She has actually maintained on room air. She was empirically started on combination therapy of ceftriaxone and vancomycin. Echo was pending. ALLERGIES: None known. MEDICATIONS: Currently include methotrexate, metoprolol, ceftriaxone, vancomycin, colchicine, rivaroxaban, furosemide. PAST MEDICAL HISTORY: Includes hypertension, coronary artery disease, rheumatoid arthritis, previous hysterectomy. SOCIAL HISTORY: Nonsmoker. No ethanol. FAMILY HISTORY: Noncontributory. REVIEW OF SYSTEMS: Otherwise, unremarkable 10-point review of systems. [address] [address] CONSULTATION Name: ASHOK ELIZONDO Room #: 358-[facility] IN [facility]#: [id number] Admission: 02/22/20 Attend Phys: Renzo Jackson MD Discharge: Date of : 40 Report #: [id number] PHYSICAL EXAMINATION: GENERAL: She appears somewhat chronically ill. She is pleasant, alert, cooperative. She is lucid, xxmf-[id number]-besdhuxc distress. VITAL SIGNS: Temperature max 100.2, more recently 99.5; pulse 107, respirations 18, blood pressure 116/64. SKIN: Warm, dry, no rashes. HEENT: Normocephalic. Extraocular muscles intact. NECK: Supple. LUNGS: Diminished breath sounds. Few scattered crackles. HEART: Regular. I do not appreciate a murmur. I do not hear a rub either. ABDOMEN: Soft, nontender. EXTREMITIES: No cyanosis. GENITOURINARY AND RECTAL: Deferred. LABORATORY DATA: ProBNP elevated at 1447. CBC: White count of 12.3, H and H 7.8 and 23.5, platelets of 259. Electrolytes: Sodium 137, potassium 3.6, chloride 103, bicarbonate is 21, anion gap of 13, BUN and creatinine 21 and 1.0, glucose of 114. ASSESSMENT: Positive coronavirus testing. I think this is not likely a newer or repeat infection, I think this is residual from previous. I do not think there is any role of antiviral in this setting. She had presented with chest pain, does have an effusion. Certainly that may be a sequelae primarily driven by the immune system I would suspect. We will await the echo results, perhaps needs pericardiocentesis if becomes compromised. She is on empiric therapy for presumptive bacterial pneumonitis. I think that is not unreasonable; we will continue that for the moment and see how she does over the course of the next 24-48 hours. At this point, she is on ambient air, is not experiencing significant respiratory discomfort. We will follow. <ELECTRONICALLY SIGNED> By: Guicho Quinn MD 02/26/20 0707 1322 1638 Guicho Quinn MD /nt
--- NOTE | 2020-02-26 07:26 | EKG ---
[facility] [place] [address] [address] [place] [address] ELECTROCARDIOGRAM REPORT Name: ASHOK ELIZONDO Room #: 358-P ADM IN M.R.#: [id number] Admission: 02/22/20 Attend Phys: Renzo Jackson MD Discharge: Date of : 40 Report #: [id number] THIS REPORT FOR: cc: Sheila Tello K. Steven DO Santiago, Patrick MD FACC ~ THIS REPORT FOR: //name// [facility] ED Test Date: 2020-02-22 Test Time: 11:08:37 Pat Name: ASHOK ELIZONDO Department: Room: 358 Gender: F Assurance Associate: KF : 1940 Requested By: Jeremy Rubio Order Number: [id number] MD: Devon Tejeda Measurements Intervals [place] Rate: 131 P: SD: QRS: 24 QRSD: 79 T: -73 QT: 291 QTc: 430 Interpretive Statements Atrial fibrillation Inferior infarct, age indeterminate Compared to ECG 01/19/2020 12:18:05 No significant changes Electronically Signed On 02-26-2020 7:26:01 DISHWASHING MACHINE OPERATOR by Devon Tejeda [email or web address] <ELECTRONICALLY SIGNED> By: Devon eTjeda MD, FACC 02/26/20 0726 1108 [id number] Devon Tejeda MD, FACC /EPI
--- NOTE | 2020-02-26 09:40 | 2DMMODE ---
[address] [address] D/M-MODE ECHOCARDIOGRAM Name: ASHOK ELIZONDO Room #: 358-P ADM IN M.R.#: [id number] Admission: 02/22/20 Attend Phys: Renzo Jackson MD Discharge: Date of : 40 Report #: [id number] THIS REPORT FOR: cc: Sheila Tello K. Steven DO Lundgren, Craig H. MD [facility] ~ APPROVED REPORT Study performed: 02/26/2020 08:43:57 EXAM: Limited 2D, Doppler, and color-flow Echocardiogram Patient Location: Bedside Room #: 358 Status: routine BSA: 1.91 HR: 111 bpm BP: 141/80 mmHg Rhythm: Tachycardia Other Information Study Quality: Adequate Indications Limited follow up for pericardial effusion. COVID+ Tricuspid Valve TR Peak Radames.: 2.33 m/s RAP Estimate: 5.00 mmHg TR Peak Gr.: 22.00 mmHg PA Pressure: 27.00 mmHg Left Ventricle The left ventricle is normal size. There is normal LV segmental wall motion. Left ventricular systolic function is normal. LVEF is 60-65%. Right Ventricle The right ventricular systolic function is normal. Aortic Valve The aortic valve is normal in structure. Mitral Valve The mitral valve is normal in structure. Tricuspid Valve [address] [address] D/M-MODE ECHOCARDIOGRAM Name: ASHOK ELIZONDO Room #: 358-P ADM IN M.R.#: [id number] Admission: 02/22/20 Attend Phys: Renzo Jackson MD Discharge: Date of : 40 Report #: [id number] The tricuspid valve is normal in structure. Trace tricuspid regurgitation. Estimated PAP is 27mmHg. Great Vessels IVC is normal in size and collapses >50% with inspiration. Pericardium Small pericadial effusion. Bilateral pleural effusions noted. <Conclusion> Left ventricular systolic function is normal. There is normal LV segmental wall motion. LVEF is 60-65%. Bilateral pleural effusions noted. Small pericadial effusion Pericardial effusion significantly smaller than what was seen on February 23, 2020 study. <ELECTRONICALLY SIGNED> By: Johan Arriaza MD, FACC 02/26/20939 9 9 Johan Arriaza MD, FACC /INF
[2020-02-26 10:54] LABS: % SATURATION 9 % (20-39); IRON 25 ug/dL (50-170); TIBC 269 ug/dL (250-450)
--- NOTE | 2020-02-26 13:34 | NUR ---
OLAYINKA reviewed chart and spoke with nursing and attending physician. Pt remains in Enhanced Isolation due to COVID-19. Pt is afebrile and on 2L of O2. Pt is on IV abx and IV steroids. Cardizem gtt to be changed to PO. Discharge home is anticipated for tomorrow. OLAYINKA spoke with pt via phone to discuss HH services with pt. Pt requests SW contact her dtr, Kia, to discuss HH services. OLAYINKA left voice message for Kia. OLAYINKA is following to assist as needed with discharge planning.
--- NOTE | 2020-02-26 18:27 | NUR ---
PT'S HR STAYED IN 80S DURING THE DAY, CARDIZEM GTT TURNED OFF, PT PREFERS TO WALK TO BATHROOM, SAFER FOR HER NOT TO HAVE TO TAKE IV POLE, ON 1L NC, ECHO DONE, HAS POOR APPETITE, DID DRINK ALL OF ENSURE SUPPLEMENT. SOMEWHAT FORGETFUL, APPEARED UNAWARE THAT SHE HAS COVID EVEN THOUGH SHE WAS REORIENTED A COUPLE TIMES. SPOKE WITH PT'S DAUGHTER TO GIVE UPDATE,
[2020-02-27 05:04] VITALS: BP 103/66
[2020-02-27 05:37] LABS: HEMATOCRIT 24.7 % (37.0-47.0); HEMOGLOBIN 8.4 gm/dL (12.0-15.0); MCH 30.5 pg (26.0-34.0); MCHC 33.9 g/dL (28.0-37.0); RBC 2.75 mil/uL (4.20-5.00); RDW 19.7 % (10.5-14.5); WBC 16.7 thou/uL (4.0-11.0)
[2020-02-27 05:50] LABS: CALCIUM 8.6 mg/dL (8.5-10.1); CREATININE 1.2 mg/dL (0.6-1.0); POTASSIUM 3.5 mmol/L (3.5-5.1)
--- NOTE | 2020-02-27 07:01 | NUR ---
AXOX4. AD JACQUE. VSS. NO S/S ACUTE DISTRESS NOTED OR REPORTED AT THIS TIME. CARE TRANSFERRED TO INCOMING RN AT THIS TIME.
[2020-02-27 07:16] VITALS: BP 128/59
[2020-02-27 11:07] VITALS: BP 109/68
[2020-02-27 12:25] VITALS: BP 109/68
[2020-02-27] MEDS ORDERED: CARDIZEM CD 18180 M3 PO (13:22)
[2020-02-27] MEDS ORDERED: ACETAMINOPHEN325 M1 PO (13:22)
[2020-02-27] MEDS ORDERED: CEFDINIR300 MG PO (13:22)
[2020-02-27] MEDS ORDERED: VENTOLIN HFA 1818 GM INH (13:22)
[2020-02-27] MEDS ORDERED: IRON325 PO (13:22)
[2020-02-27 13:41] VITALS: BP 109/68
--- NOTE | 2020-02-27 13:42 | NUR ---
RECEIVED PT'S CARE AROUND 07; PT. AFIB ON THE MONITOR; DURING AM ASSESSMENT PT. AOX4; 0N 2L; NO C/O PAIN; 02 TITRATE TO RA; 96% ON RA; AM MEDICATIONS GIVEN; EDUCATED ABOUT FALL PRECAUTIONS; PER DR. FARNSWORTH PT. MIGHT BE D/C AFTER ID ROUNDING; PT. NOTIFIED; UPSET BECAUSE ST. "I ALREADY CALL EVERY BODY"; EDUCATED ABOUT THE IMPORTANCE OF PHYSICIANS AGREEING WITH TREATMENT; NO ANSWER BACK; DR. FRANCO ROUNDING BEFORE 1300; NOTIFIED; AFTER ROUNDING DR. FRANCO OK WITH PT. GOING HOME; DR. FARNSWORTH NOTIFIED X2; ASSESSMENT CHARGED; FOLLOWING POC; WILL WORK ON D/C PAPERS;
--- NOTE | 2020-02-27 13:50 | NUR ---
DISCHARGE NOTE: SW reviewed chart and spoke with nursing and attending physician. Enhanced Isolation precautions have been discontinued. Pt is medically stable for discharge home today. Orders written for HH. SW spoke with pt via phone to discuss discharge plan. Pt states she will need to talk with her dtr, Kia, about having HH services. Pt states that her family is able to assist her as needed. SW offered to arrange HH and have them follow up with pt tomorrow. Pt declined offer. Pt will discuss with her dtr. Pt or dtr to notify SW if they change their minds later today or tomorrow for HH. SW encouraged pt to contact her PCP, Dr. Tello, as well for orders for HH after discharge. Pt verbalized understanding. SW updated nursing and attending physician. Pt's family to provide transportation home. No additional SW needs identified at this time, but is available to assist should needs arise.
== END 2020-02-27 14:25 | disposition home health service (06) | DRG 314 ==
LOC: ER 10:51 → EROBS 15:53 → 3W 15:53 → 2N 17:40 → 3W 22:44
PROVIDERS: Emergency Medicine; Internal Medicine; ADMIT Hospitalist; ATTEND Hospitalist
DX: I31.9 Disease of pericardium, unspecified (principal); U07.1 COVID-19; J12.89 Other viral pneumonia; J96.01 Acute respiratory failure with hypoxia; J91.8 Pleural effusion in other conditions classified elsewhere; D68.59 Other primary thrombophilia; I42.9 Cardiomyopathy, unspecified; E46 Unspecified protein-calorie malnutrition; I31.3 Pericardial effusion (noninflammatory); I10 Essential (primary) hypertension; I25.10 Atherosclerotic heart disease of native coronary artery without angina pectoris; M06.9 Rheumatoid arthritis, unspecified; E78.5 Hyperlipidemia, unspecified; D64.9 Anemia, unspecified; I48.91 Unspecified atrial fibrillation; Z95.5 Presence of coronary angioplasty implant and graft; Z90.710 Acquired absence of both cervix and uterus; Z68.27 Body mass index [BMI] 27.0-27.9, adult; Z79.899 Other long term (current) drug therapy
CPT/HCPCS: 10879

== ENCOUNTER → 2020-04-02 | Outpatient (CLI) | payer OTHER ==
[~2020-04-02] MED LIST changes: +ACETAMINOPHEN325 M1 PO; +CARDIZEM CD 18180 M3 PO; +CEFDINIR300 MG PO; +IRON325 PO; +VENTOLIN HFA 1818 GM INH
== END ==
LOC: SJCVCIMAG 09:12
PROVIDERS: ATTEND Internal Medicine
DX: I08.8 Other rheumatic multiple valve diseases (principal); I11.9 Hypertensive heart disease without heart failure; I48.0 Paroxysmal atrial fibrillation; I25.10 Atherosclerotic heart disease of native coronary artery without angina pectoris; I31.3 Pericardial effusion (noninflammatory); E78.5 Hyperlipidemia, unspecified; U07.1 COVID-19; J12.82 Pneumonia due to coronavirus disease 2019; D64.9 Anemia, unspecified; I42.9 Cardiomyopathy, unspecified; K21.9 Gastro-esophageal reflux disease without esophagitis; I25.2 Old myocardial infarction; M06.9 Rheumatoid arthritis, unspecified; Z95.5 Presence of coronary angioplasty implant and graft; Z79.82 Long term (current) use of aspirin; Z79.899 Other long term (current) drug therapy

== ENCOUNTER → 2020-10-04 | Outpatient (CLI) | payer OTHER | LOC: SJCVC 09:46 | PROVIDERS: ATTEND Internal Medicine | DX: I25.10 Atherosclerotic heart disease of native coronary artery without angina pectoris (principal); I48.0 Paroxysmal atrial fibrillation; I10 Essential (primary) hypertension; I31.3 Pericardial effusion (noninflammatory); E78.5 Hyperlipidemia, unspecified; D64.9 Anemia, unspecified; I42.9 Cardiomyopathy, unspecified; K21.9 Gastro-esophageal reflux disease without esophagitis; I25.2 Old myocardial infarction; M06.9 Rheumatoid arthritis, unspecified; Z95.5 Presence of coronary angioplasty implant and graft; Z90.710 Acquired absence of both cervix and uterus; Z79.82 Long term (current) use of aspirin; Z79.899 Other long term (current) drug therapy; Z86.16 Personal history of COVID-19 ==

== ENCOUNTER → 2021-04-11 | Outpatient (CLI) | payer OTHER | LOC: SJCVC 15:34 | PROVIDERS: ATTEND Internal Medicine | DX: I25.10 Atherosclerotic heart disease of native coronary artery without angina pectoris (principal); I48.0 Paroxysmal atrial fibrillation; I10 Essential (primary) hypertension; I31.3 Pericardial effusion (noninflammatory); E78.5 Hyperlipidemia, unspecified; J12.82 Pneumonia due to coronavirus disease 2019; U07.1 COVID-19; K21.9 Gastro-esophageal reflux disease without esophagitis; Z79.82 Long term (current) use of aspirin; Z79.899 Other long term (current) drug therapy; Z95.5 Presence of coronary angioplasty implant and graft ==